=== PATIENT | male | born 1970 | race African-American/Black ===

== ENCOUNTER 2019-07-05 08:35 | Emergency (ER) | payer MEDICAID ==
[~2019-07-05] VITALS: Ht 193 cm; Wt 130.0 kg
--- NOTE | 2019-07-05 09:18 | NUR ---
informed provider kailee of pt BP currently 196/113, she asked what he takes, gf doesnt know meds, and pt hasnt been taking them, she will address
--- NOTE | 2019-07-05 09:24 | NUR ---
provider at bedside, pt is able to answer questions now
[2019-07-05 10:06] VITALS: BP 185/126
== END 2019-07-05 10:07 | disposition home or self-care (01) ==
LOC: ER 08:36
DX: G40.909 Epilepsy, unspecified, not intractable, without status epilepticus (principal)
CPT/HCPCS: 99284

== ENCOUNTER 2019-12-03 14:25 | Emergency (ER) | payer MEDICAID ==
[~2019-12-03] VITALS: Ht 193 cm; Wt 122.0 kg
[2019-12-03] MEDS ORDERED: levetiracetam-NS 1000mg/100ml 100 ML IV SCH (14:46)
[2019-12-03 15:02] LABS: BASOPHILS # (AUTO) 0.1 X10'3 (0-0.2); EOSINOPHILS # (AUTO) 0.2 X10'3 (0-0.9); EOSINOPHILS % (AUTO) 3.7 % (0-6); HEMATOCRIT 44.5 % (42.0-52.0); LYMPHOCYTES # (AUTO) 1.8 X10'3 (1.1-4.8); LYMPHOCYTES % (AUTO) 28.7 % (21-51); MEAN CORPUSCULAR HGB CONC 33.6 g/dL (33.0-36.5); MEAN CORPUSCULAR VOLUME 89.1 FL (78-98); MEAN PLATELET VOLUME 7.9 FL (7.4-10.4); MONOCYTES # (AUTO) 0.5 X10'3 (0-0.9); MONOCYTES % (AUTO) 8.4 % (2-12); NEUTROPHILS # (AUTO) 3.7 X10'3 (1.8-7.7); NEUTROPHILS % (AUTO) 58.2 % (42-75); PLATELET COUNT 310 X10'3 (140-440); RED CELL DISTRIBUTION WIDTH 14.2 % (11.5-14.5); WHITE BLOOD COUNT 6.4 X10'3 (4.5-11.0)
[2019-12-03 15:20] LABS: ALANINE AMINOTRANSFERASE 28 U/L (12-78); ALBUMIN 3.3 G/DL (3.4-5.0); ALBUMIN/GLOBULIN RATIO 0.8 (1.1-1.5); ALKALINE PHOSPHATASE 57 IU/L (46-116); ANION GAP 5 (8-16); BILIRUBIN,TOTAL 0.5 MG/DL (0.1-1.0); BLOOD UREA NITROGEN 13 MG/DL (7-18); CALCIUM 9.2 MG/DL (8.5-10.1); CHLORIDE 101 MMOL/L (99-107); CREATININE 1.08 MG/DL (0.60-1.10); GLUCOSE 126 MG/DL (70-104); SODIUM 136 MMOL/L (135-145); TOTAL CARBON DIOXIDE 30.4 MMOL/L (24-32); TOTAL PROTEIN 7.6 G/DL (6.4-8.2); eGFR 88 ML/MIN
[2019-12-03 15:22] LABS: ASPARTATE AMINO TRANSFERASE 39 U/L (10-37); POTASSIUM 5.9 MMOL/L (3.5-5.1)
[2019-12-03] MEDS ORDERED: furosemide 40mg/4ml inj IV ONE (15:55)
[2019-12-03] MEDS ORDERED: furosemide 10 MG/1 ML 10ml inj IV ONE (15:55)
[2019-12-03 16:13] VITALS: BP 158/96
[2019-12-03] MEDS ORDERED: furosemide 20MG tablet PO ONE (16:15)
== END 2019-12-03 16:22 | disposition home or self-care (01) ==
LOC: ER 14:26
DX: G40.919 Epilepsy, unspecified, intractable, without status epilepticus (principal); E87.5 Hyperkalemia; I10 Essential (primary) hypertension; Z91.14 Patient's other noncompliance with medication regimen
CPT/HCPCS: 36415; 80053; 85025; 96374; 99284; J1953

== ENCOUNTER 2020-07-13 00:49 | Inpatient (IN) | payer MEDICAID ==
[~2020-07-13] VITALS: Ht 193 cm; Wt 118.2 kg
[2020-07-13] MEDS ORDERED: nitroGLYCERIN-Tridil 50MG/D5W 250 ML IV PRN (01:05)
[2020-07-13] MEDS ORDERED: aspirin 81mg tab.chew PO ONE (01:05)
[2020-07-13 01:28] LABS: ALANINE AMINOTRANSFERASE 39 U/L (12-78); ALBUMIN 3.7 G/DL (3.4-5.0); ALBUMIN/GLOBULIN RATIO 0.9 (1.1-1.5); ALKALINE PHOSPHATASE 71 IU/L (46-116); ANION GAP 6 (8-16); ASPARTATE AMINO TRANSFERASE 22 U/L (10-37); BILIRUBIN,TOTAL 0.5 MG/DL (0.1-1.0); BLOOD UREA NITROGEN 12 MG/DL (7-18); BUN/CREATININE RATIO 10.1 (5.4-32.0); CALCIUM 9.2 MG/DL (8.5-10.1); CHLORIDE 100 MMOL/L (99-107); CREATININE 1.19 MG/DL (0.60-1.10); GLUCOSE 235 MG/DL (70-104); POTASSIUM 3.5 MMOL/L (3.5-5.1); SODIUM 139 MMOL/L (135-145); TOTAL CARBON DIOXIDE 32.6 MMOL/L (24-32); eGFR 78 ML/MIN
[2020-07-13 01:36] LABS: TROPONIN I 0.11 NG/ML (0.0-0.05)
[2020-07-13 01:38] LABS: BASOPHILS # (AUTO) 0.1 X10'3 (0-0.2); BASOPHILS % (AUTO) 0.5 % (0-1); EOSINOPHILS # (AUTO) 0.2 X10'3 (0-0.9); EOSINOPHILS % (AUTO) 1.3 % (0-6); HEMATOCRIT 44.2 % (42.0-52.0); HEMOGLOBIN 14.7 g/dl (14.0-17.9); LYMPHOCYTES # (AUTO) 1.5 X10'3 (1.1-4.8); LYMPHOCYTES % (AUTO) 13.3 % (21-51); MEAN CORPUSCULAR HEMOGLOBIN 29.2 PG (27.0-31.0); MEAN CORPUSCULAR HGB CONC 33.1 g/dL (33.0-36.5); MEAN PLATELET VOLUME 8.1 FL (7.4-10.4); MONOCYTES # (AUTO) 0.9 X10'3 (0-0.9); MONOCYTES % (AUTO) 7.4 % (2-12); NEUTROPHILS # (AUTO) 8.9 X10'3 (1.8-7.7); NEUTROPHILS % (AUTO) 77.5 % (42-75); PLATELET COUNT 324 X10'3 (140-440); RED BLOOD COUNT 5.02 X10'6 (4.70-6.10); RED CELL DISTRIBUTION WIDTH 14.1 % (11.5-14.5); WHITE BLOOD COUNT 11.5 X10'3 (4.5-11.0)
[2020-07-13] MEDS ORDERED: enoxaparin 100mg/ml syringe SUBCUT ONE ×2 (02:00→03:00)
[2020-07-13] MEDS ORDERED: METF-950 PO (02:03)
[2020-07-13] MEDS ORDERED: KEP500T PO (02:03)
[2020-07-13] MEDS ORDERED: LORazepam 2 mg/ml vial IV ONE (03:15)
[2020-07-13] MEDS ORDERED: metoprolol tartrate 1mg/ml inj IV ONE (03:20)
[2020-07-13] MEDS ORDERED: normal saline 1000ml 1,000 ML IV SCH ×2 (03:40→14:10)
[2020-07-13] MEDS ORDERED: potassium Cl 40MEQ/1/2NS 520ml 520 ML IV PRN ×2 (03:40)
[2020-07-13] MEDS ORDERED: magnesium hydroxide 30ml (MOM) UD suspension PO PRN (03:40)
[2020-07-13] MEDS ORDERED: potassium Cl 20 mEq SR tablet PO PRN ×2 (03:40)
[2020-07-13] MEDS ORDERED: ondansetron/PF 4mg/2ml inj IV PRN (03:40)
[2020-07-13] MEDS ORDERED: morphine 2 MG/ML inj. syringe IV PRN ×2 (03:40)
[2020-07-13] MEDS ORDERED: mag hydrox/Alum hydrox/simeth 30ml oral suspension PO PRN (03:40)
[2020-07-13] MEDS ORDERED: acetaminophen 325mg tablet PO PRN (03:40)
[2020-07-13] MEDS ORDERED: diphenhydrAMINE 25mg capsule PO ONE (03:45)
[2020-07-13] MEDS ORDERED: predniSONE 20 mg tablet PO ONE (03:45)
[2020-07-13] MEDS ORDERED: LORazepam 2 mg/ml vial IV PRN (03:45)
[2020-07-13 04:11] LABS: HEMOGLOBIN A1C 7.4 % (4.5-6.2)
[2020-07-13] MEDS: K and/or MAG REPLACEMENT MC SCH ×2 (08:00→20:00)
[2020-07-13] MEDS ORDERED: metoprolol tartrate 50mg tablet PO SCH (08:00)
[2020-07-13 08:30] VITALS: BP 131/94
[2020-07-13] MEDS: levetiracetam 250mg tablet PO SCH ×2 (09:09→20:07)
[2020-07-13] MEDS ORDERED: heparin 10,000 units/1 ML INJ IV ONE (09:45)
[2020-07-13] MEDS ORDERED: heparin 10,000 units/1 ML INJ IV PRN (09:45)
[2020-07-13] MEDS ORDERED: heparin 25,000 UNIT/250ml bag 250 ML IV SCH (09:45)
--- NOTE | 2020-07-13 10:14 | NUR ---
updated DR. RAMOS THAT PATIENT WAS HAVING RUNS OF V TACH. DR RAMOS GAVE A VERBAL ORDER TO STOP THE NITRO DRIP. NITRO DRIP HAS BEEN STOPPED ORDER IS IN.
--- NOTE | 2020-07-13 11:05 | NUR ---
PAGER ID: [phone] MESSAGE: [id number] MAYITO CORDOBA TROP LEVEL WENT UP TO 20.12 ROSCOE SHAKEEL [id number]
[2020-07-13 11:24] LABS: CHOL/HDL RATIO 6.2 (0.00-4.99); CHOLESTEROL 235 MG/DL (0-200); HDL CHOLESTEROL 38 MG/DL (35-60); LDL CHOLESTEROL 142 MG/DL (50-100); TRIGLYCERIDES 231 MG/DL (20-135)
[2020-07-13] MEDS: tirofiban 5mg in NS 100mL 100 ML IV SCH ×3 (11:31→21:14)
[2020-07-13] MEDS ORDERED: nitroGLYCERIN-Tridil 50MG/D5W 250 ML IV ONE (11:59)
[2020-07-13] MEDS ORDERED: verapamil 2.5 mg/ml inj IV ONE (11:59)
[2020-07-13] MEDS ORDERED: iohexol 350MG/ML 100ml bottle IV ONE (12:00)
[2020-07-13] MEDS ORDERED: midazolam 1 mg/ML 2ml injection ONE (12:00)
[2020-07-13] MEDS ORDERED: LIDOcaine 1% (10mg/ml)w/preservative injection 20ml MDV ONE (12:00)
[2020-07-13] MEDS ORDERED: heparin 1,000unit/ml 10ml vial 10 ML ONE (12:00)
[2020-07-13] MEDS ORDERED: fentaNYL/PF 50MCG/1 ML 2ML syringe ONE (12:00)
[2020-07-13 12:41] LABS: PARTIAL THROMBOPLASTIN TIME 26 SECONDS (22-32)
[2020-07-13 13:03] VITALS: BP 130/90
[2020-07-13] MEDS ORDERED: ticagrelor 90mg tablet ONE (13:18)
[2020-07-13] MEDS ORDERED: nitroGLYCERIN 0.4mg SUBLingual tab SL PRN (14:15)
--- NOTE | 2020-07-13 14:35 | NUR ---
ALL HYDRAULIC MECHANIC ORDERS FAXED TO PHARMACY, AWAIT THERE ARRIVAL ON eMAR Addendum: 07/14/20 at 1401 by Mariia Joseph RN Amended: Links added.
--- NOTE | 2020-07-13 16:20 | NUR ---
SPOKE WITH SHANTI WING AND ASKED IF I COULD PUT AN ORDER IN FOR PATIENT TO RECEIVE FIRST DOSE OF METOPROL AND LOSARTAN. ORDERS ENTERED AND GIVEN. Addendum: 07/14/20 at 1407 by Mariia Joseph RN Amended: Links added.
[2020-07-13 16:21] VITALS: BP 131/85
[2020-07-13] MEDS ORDERED: metoprolol succinate 25mg (24-HOUR) SR. Tablet PO ONE (16:45)
[2020-07-13] MEDS: losartan 25mg tablet PO SCH (17:00)
[2020-07-13 18:00] VITALS: BP 139/92
--- NOTE | 2020-07-13 18:10 | NUR ---
Patient in room PCU 3023. I have received report from KAYLI MALHOTRA and had the opportunity to ask questions and assume patient care.
[2020-07-13] MEDS ORDERED: enoxaparin 100mg/ml syringe SUBCUT SCH (20:00)
[2020-07-13] MEDS: atorvastatin 20mg tablet PO SCH (20:07)
[2020-07-13 22:00] VITALS: BP 141/93
[2020-07-14] VITALS (16 sets, daily range): BP systolic 115–149; BP diastolic 73–103
[2020-07-14] MEDS: tirofiban 5mg in NS 100mL 100 ML IV SCH (01:51)
--- NOTE | 2020-07-14 06:00 | NUR ---
Problems reprioritized. Patient report given, questions answered & plan of care reviewed with KAYLI MALHOTRA.
--- NOTE | 2020-07-14 06:00 | NUR ---
Patient in room PCU 3023. I have received report from IMANI MILAN and had the opportunity to ask questions and assume patient care.
--- NOTE | 2020-07-14 06:08 | NUR ---
Problems reprioritized. Patient report given, questions answered & plan of care reviewed with KAYLI DANIELLE.
[2020-07-14] MEDS: K and/or MAG REPLACEMENT MC SCH ×3 (08:00→21:33)
[2020-07-14 08:17] LABS: BASOPHILS % (AUTO) 0.3 % (0-1); EOSINOPHILS # (AUTO) 0.1 X10'3 (0-0.9); EOSINOPHILS % (AUTO) 0.9 % (0-6); HEMOGLOBIN 14.6 g/dl (14.0-17.9); LYMPHOCYTES # (AUTO) 1.6 X10'3 (1.1-4.8); LYMPHOCYTES % (AUTO) 14.2 % (21-51); MEAN CORPUSCULAR HEMOGLOBIN 29.5 PG (27.0-31.0); MEAN CORPUSCULAR HGB CONC 33.1 g/dL (33.0-36.5); MEAN PLATELET VOLUME 8.3 FL (7.4-10.4); MONOCYTES # (AUTO) 1.3 X10'3 (0-0.9); MONOCYTES % (AUTO) 11.2 % (2-12); NEUTROPHILS # (AUTO) 8.5 X10'3 (1.8-7.7); NEUTROPHILS % (AUTO) 73.4 % (42-75); PLATELET COUNT 308 X10'3 (140-440); RED BLOOD COUNT 4.94 X10'6 (4.70-6.10); RED CELL DISTRIBUTION WIDTH 13.9 % (11.5-14.5); WHITE BLOOD COUNT 11.6 X10'3 (4.5-11.0)
[2020-07-14] MEDS: nicotine 14mg patch - 24hr TD SCH (08:37)
[2020-07-14] MEDS: metoprolol succinate 25mg (24-HOUR) SR. Tablet PO SCH (08:38)
[2020-07-14] MEDS: losartan 25mg tablet PO SCH (08:38)
[2020-07-14] MEDS: levetiracetam 250mg tablet PO SCH ×2 (08:38→19:50)
[2020-07-14 08:45] LABS: ALANINE AMINOTRANSFERASE 89 U/L (12-78); ALBUMIN 3.1 G/DL (3.4-5.0); ALBUMIN/GLOBULIN RATIO 0.7 (1.1-1.5); ALKALINE PHOSPHATASE 68 IU/L (46-116); ANION GAP 9 (8-16); ASPARTATE AMINO TRANSFERASE 410 U/L (10-37); BLOOD UREA NITROGEN 10 MG/DL (7-18); BUN/CREATININE RATIO 9.3 (5.4-32.0); CALCIUM 8.7 MG/DL (8.5-10.1); CHLORIDE 99 MMOL/L (99-107); CHOL/HDL RATIO 5.6 (0.00-4.99); CHOLESTEROL 206 MG/DL (0-200); CREATININE 1.07 MG/DL (0.60-1.10); GLUCOSE 145 MG/DL (70-104); HDL CHOLESTEROL 37 MG/DL (35-60); LDL CHOLESTEROL 133 MG/DL (50-100); POTASSIUM 3.6 MMOL/L (3.5-5.1); SODIUM 137 MMOL/L (135-145); TOTAL CARBON DIOXIDE 29.4 MMOL/L (24-32); TOTAL PROTEIN 7.5 G/DL (6.4-8.2); TRIGLYCERIDES 175 MG/DL (20-135); eGFR 88 ML/MIN
--- NOTE | 2020-07-14 09:45 | NUR ---
CALLED PHARMACY TO HAVE ASPIRIN AND BRILINTA ADDED TO MORNING MEDS Addendum: 07/14/20 at 1353 by Mariia Joseph RN Amended: Links added.
--- NOTE | 2020-07-14 11:45 | NUR ---
CALLED PHARMACY ABOUT BRILINTA AND BABY ASPIRIN AGAIN, PHARMACIST STATED THAT HE WAS LOOKING OVER THE ORDERS AND WOULD GET IT IN Addendum: 07/14/20 at 1356 by Mariia Joseph RN Amended: Links added.
--- NOTE | 2020-07-14 11:58 | NUR ---
PAGER ID: [phone] MESSAGE: [phone] MAYITO CORDOBA EKG SHOWING SC, PT IS ASLEEP NOW BUT WAS COMPLAINING OF LEFT SHOULDER PAIN
--- NOTE | 2020-07-14 12:09 | NUR ---
PAGER ID: [phone] MESSAGE: [id number] BERYL EDMOND PT IS NOW COMPLAINING THAT HE FEELS FUNNY, HE IS ALSO diaphoretic IM WORRIED HIS STENT IS CLOTTING OFF ROSCOE [id number]
[2020-07-14] MEDS ORDERED: midazolam 1 mg/ML 2ml injection ONE (12:39)
[2020-07-14] MEDS ORDERED: iohexol 350 MG/1 ML 200ml bottle ONE (12:40)
[2020-07-14] MEDS ORDERED: LIDOcaine 1% (10mg/ml)w/preservative injection 20ml MDV ONE (12:40)
[2020-07-14] MEDS ORDERED: fentaNYL/PF 50MCG/1 ML 2ML syringe ONE (12:40)
[2020-07-14] MEDS: aspirin 81mg tablet.DR PO SCH (12:40)
[2020-07-14] MEDS: ticagrelor 90mg tablet PO SCH ×2 (12:40→19:50)
[2020-07-14] MEDS ORDERED: heparin 1,000unit/ml 10ml vial 10 ML ONE (12:40)
--- NOTE | 2020-07-14 12:40 | NUR ---
CALLED PHARMACY AGAIN AND THIS TIME THE BRILINTA AND ASPIRIN WHERE ADDED AND I WAS ABLE TO GIVE TO PT Addendum: 07/14/20 at 1357 by Mariia Joseph RN Amended: Links added.
[2020-07-14] MEDS ORDERED: ticagrelor 90mg tablet ONE (13:05)
--- NOTE | 2020-07-14 13:42 | NUR ---
Pt with A1c 7.4%, admit for NSTEMI. Noted elevated lipid panel. Attempted visit with pt at bedside however pt sleeping. SO at bedside reports she does most of the cooking at home. Pt briefly woke and gave consent for RD to d/w SO. Written and verbal DM and heart healthy nutrition therapy educations provided. RD discussed foods that contain carbohydrates, reading the nutrition facts label, fat and CHO intake in moderation, different types and sources of fat, and the role of exercise. SO reports pt with "prediabetes". Noted Metformin reported on home med list per H&P though SO denies that pt has been taking any DM medication or checking blood sugars. RD encouraged pt to f/u with MD regarding further plan for BG control in view of current A1c. SO verbalized understanding and reports pt has an appointment with his physician coming up. All questions were answered at this time. SO states she will review education with pt. RD contact information provided. Will remain available. Addendum: 07/14/20 at [address] Amended: Links added.
--- NOTE | 2020-07-14 14:34 | NUR ---
DR CHRISTIAN SHOWN IMAGE OF EKG TAKEN UPON ARRIVAL BACK TO U. HE STATES THAT IT LOOKS THE SAME THE ONE PRIOR TO ADVENTURE GUIDE. NO ISSUE WITH LAD WAS FINE.
[2020-07-14] MEDS: atorvastatin 20mg tablet PO SCH (19:50)
--- NOTE | 2020-07-14 22:42 | NUR ---
Patient in room PCU 3023. I have received report from Mariia MILAN and had the opportunity to ask questions and assume patient care.
[2020-07-15 02:00] VITALS: BP 152/94
[2020-07-15 06:00] VITALS: BP 126/85
--- NOTE | 2020-07-15 06:00 | NUR ---
Patient in room PCU 3023. I have received report from Rell MILAN and had the opportunity to ask questions and assume patient care.
--- NOTE | 2020-07-15 06:32 | NUR ---
Problems reprioritized. Patient report given, questions answered & plan of care reviewed with Maggie.
[2020-07-15 07:18] LABS: BASOPHILS % (AUTO) 0.4 % (0-1); EOSINOPHILS % (AUTO) 0.4 % (0-6); HEMATOCRIT 44.6 % (42.0-52.0); HEMOGLOBIN 15.1 g/dl (14.0-17.9); LYMPHOCYTES # (AUTO) 1.5 X10'3 (1.1-4.8); LYMPHOCYTES % (AUTO) 14.5 % (21-51); MEAN CORPUSCULAR HEMOGLOBIN 29.8 PG (27.0-31.0); MEAN CORPUSCULAR HGB CONC 33.8 g/dL (33.0-36.5); MEAN CORPUSCULAR VOLUME 88.2 FL (78-98); MEAN PLATELET VOLUME 8.1 FL (7.4-10.4); MONOCYTES # (AUTO) 1.5 X10'3 (0-0.9); NEUTROPHILS % (AUTO) 69.7 % (42-75); PLATELET COUNT 290 X10'3 (140-440); RED BLOOD COUNT 5.06 X10'6 (4.70-6.10); RED CELL DISTRIBUTION WIDTH 14.2 % (11.5-14.5)
[2020-07-15 07:44] LABS: ALANINE AMINOTRANSFERASE 72 U/L (12-78); ALBUMIN 2.8 G/DL (3.4-5.0); ALBUMIN/GLOBULIN RATIO 0.6 (1.1-1.5); ALKALINE PHOSPHATASE 67 IU/L (46-116); ANION GAP 11 (8-16); ASPARTATE AMINO TRANSFERASE 156 U/L (10-37); BILIRUBIN,TOTAL 2.3 MG/DL (0.1-1.0); BLOOD UREA NITROGEN 9 MG/DL (7-18); CHLORIDE 100 MMOL/L (99-107); GLUCOSE 137 MG/DL (70-104); POTASSIUM 3.6 MMOL/L (3.5-5.1); SODIUM 138 MMOL/L (135-145); TOTAL CARBON DIOXIDE 27.3 MMOL/L (24-32); TOTAL PROTEIN 7.6 G/DL (6.4-8.2); eGFR > 90 ML/MIN
[2020-07-15] MEDS: levetiracetam 250mg tablet PO SCH (07:54)
[2020-07-15] MEDS: ticagrelor 90mg tablet PO SCH (07:55)
[2020-07-15] MEDS: aspirin 81mg tablet.DR PO SCH (07:55)
[2020-07-15] MEDS: metoprolol succinate 25mg (24-HOUR) SR. Tablet PO SCH (07:55)
[2020-07-15 07:59] LABS: PLATELET ESTIMATE NORMAL; TOTAL CELLS COUNTED 100
[2020-07-15] MEDS ORDERED: losartan 25mg tablet PO SCH (08:00)
[2020-07-15] MEDS: K and/or MAG REPLACEMENT MC SCH (08:00)
[2020-07-15] MEDS: nicotine 14mg patch - 24hr TD SCH (08:02)
[2020-07-15 11:00] VITALS: BP 117/81
[2020-07-15 15:00] VITALS: BP 111/68
--- NOTE | 2020-07-15 17:03 | NUR ---
PAGER ID: [phone] MESSAGE: Patient Luis Graves room [id number] has received his life vest and is inquiring about discharge. Please advise,. Thanks, Maggie [phone]
--- NOTE | 2020-07-15 17:10 | NUR ---
PAGER ID: [phone] MESSAGE: Dr. Simpson has rounded on pt Luis Graves Rm 1706N and stated from his perspective he is ok for discharge with home meds ASA, Brilinta and statin. Maggie ext [phone]
[2020-07-15] MEDS ORDERED: ATOR20TA66 PO (17:19)
[2020-07-15] MEDS ORDERED: TICA90TA PO (17:19)
[2020-07-15] MEDS ORDERED: NICO-631 TD (17:19)
[2020-07-15] MEDS ORDERED: LOSA25TA41 PO (17:19)
[2020-07-15] MEDS ORDERED: ASPI-1071 PO (17:19)
[2020-07-15] MEDS ORDERED: METO-395 PO (17:19)
--- NOTE | 2020-07-15 17:47 | NUR ---
patient stable for discharge per Dr Simpson and Dr Aponte. Education provided on lifevest, medication regimine, and follow up appointments. Tele and PIV discharged with cannula intact. Pt wheeled to lobby by [facility] to be transported home with his spouse.
== END 2020-07-15 17:43 | disposition home or self-care (01) | DRG 174 ==
LOC: ER 00:50 → ED HOLD 03:40 → PCU 3S 08:12
PROVIDERS: ADMIT Internal Medicine; ATTEND Internal Medicine
PROC: 027034Z Dilation of Coronary Artery, One Artery with Drug-eluting Intraluminal Device, Percutaneous Approach (ICD-10-PCS; principal; 2020-07-13)
PROC: 4A023N7 Measurement of Cardiac Sampling and Pressure, Left Heart, Percutaneous Approach (ICD-10-PCS; 2020-07-13)
PROC: B2111ZZ Fluoroscopy of Multiple Coronary Arteries using Low Osmolar Contrast (ICD-10-PCS; 2020-07-13)
PROC: B2111ZZ Fluoroscopy of Multiple Coronary Arteries using Low Osmolar Contrast (ICD-10-PCS; 2020-07-14)
PROC: B41F1ZZ Fluoroscopy of Right Lower Extremity Arteries using Low Osmolar Contrast (ICD-10-PCS; 2020-07-14)
DX: I21.4 Non-ST elevation (NSTEMI) myocardial infarction (principal); I11.0 Hypertensive heart disease with heart failure; I50.22 Chronic systolic (congestive) heart failure; E11.9 Type 2 diabetes mellitus without complications; G40.909 Epilepsy, unspecified, not intractable, without status epilepticus; E78.5 Hyperlipidemia, unspecified; Z88.8 Allergy status to other drugs, medicaments and biological substances; F17.210 Nicotine dependence, cigarettes, uncomplicated; F12.90 Cannabis use, unspecified, uncomplicated; Z91.14 Patient's other noncompliance with medication regimen; E78.00 Pure hypercholesterolemia, unspecified; I16.0 Hypertensive urgency; I25.10 Atherosclerotic heart disease of native coronary artery without angina pectoris; Z79.899 Other long term (current) drug therapy; M54.2 Cervicalgia; Z79.02 Long term (current) use of antithrombotics/antiplatelets
CPT/HCPCS: 36415; 71045; 80053; 80061; 82948; 83036; 83880; 84484; 85007; 85025; 85610; 85730; 93005; 93306; 93454; 96365; 96372; 96375; 99152; 99291; A4620; A5120; A6258; C1725; C1751; C1760; C1769; C1874; C1894; C9600; C9606; G0378; J1644; J1650; J2001; J2060; J2250; J3010; J3246; J3490; J7030; J7512; Q0163; Q9967

== ENCOUNTER 2020-07-24 18:04 | Emergency (ER) | payer MEDICAID ==
[~2020-07-24] VITALS: Ht 193 cm; Wt 115.9 kg
[~2020-07-24 18:04] MED LIST: ASPI-1071 PO; ATOR20TA66 PO; KEP500T PO; LOSA25TA41 PO; METF-950 PO; METO-395 PO; NICO-631 TD; TICA90TA PO
[2020-07-24 19:17] VITALS: BP 121/81
== END 2020-07-24 21:33 | disposition left against medical advice (07) ==
LOC: ER 18:05
DX: M79.631 Pain in right forearm (principal); M25.531 Pain in right wrist; E78.00 Pure hypercholesterolemia, unspecified; I10 Essential (primary) hypertension; Z91.013 Allergy to seafood; Z79.82 Long term (current) use of aspirin; Z79.899 Other long term (current) drug therapy
CPT/HCPCS: 99281

== ENCOUNTER 2020-11-21 03:17 | Inpatient (IN) | payer MEDICAID ==
[~2020-11-21] VITALS: Ht 193 cm; Wt 121.4 kg
[2020-11-21] MEDS ORDERED: ondansetron/PF 4mg/2ml inj IV ONE (04:00)
[2020-11-21] MEDS ORDERED: normal saline 1000ML IV soln IVB ONE (04:00)
[2020-11-21 04:12] LABS: BASOPHILS # (AUTO) 0.1 X10'3 (0-0.2); BASOPHILS % (AUTO) 0.5 % (0-1); EOSINOPHILS % (AUTO) 0 % (0-6); LYMPHOCYTES # (AUTO) 0.5 X10'3 (1.1-4.8); LYMPHOCYTES % (AUTO) 4.5 % (21-51); MEAN PLATELET VOLUME 10.4 FL (7.4-10.4); MONOCYTES # (AUTO) 0.9 X10'3 (0-0.9); NEUTROPHILS # (AUTO) 10.8 X10'3 (1.8-7.7); PLATELET COUNT 326 X10'3 (140-440); WHITE BLOOD COUNT 12.3 X10'3 (4.5-11.0)
[2020-11-21 04:26] LABS: ALANINE AMINOTRANSFERASE 50 U/L (12-78); ALBUMIN 3.9 G/DL (3.4-5.0); ALBUMIN/GLOBULIN RATIO 0.8 (1.1-1.5); ALKALINE PHOSPHATASE 116 IU/L (46-116); ANION GAP 29 (8-16); ASPARTATE AMINO TRANSFERASE 18 U/L (10-37); BILIRUBIN,TOTAL 0.7 MG/DL (0.1-1.0); BLOOD UREA NITROGEN 46 MG/DL (7-18); BUN/CREATININE RATIO 14.9 (5.4-32.0); CALCIUM 10.2 MG/DL (8.5-10.1); CHLORIDE 84 MMOL/L (99-107); CREATININE 3.08 MG/DL (0.60-1.10); LIPASE 206 U/L (73-393); MAGNESIUM 3.2 MG/DL (1.5-2.4); SODIUM 125 MMOL/L (135-145); TOTAL PROTEIN 8.7 G/DL (6.4-8.2); TROPONIN I < 0.04 NG/ML (0.0-0.05); eGFR 26 ML/MIN
[2020-11-21 04:44] LABS: HEMATOCRIT 42.6 % (42.0-52.0); HEMOGLOBIN 15.1 g/dl (14.0-17.9); MEAN CORPUSCULAR HEMOGLOBIN 29.5 PG (27.0-31.0); MEAN CORPUSCULAR HGB CONC 35.5 g/dL (33.0-36.5); RED BLOOD COUNT 5.14 X10'6 (4.70-6.10); RED CELL DISTRIBUTION WIDTH 13.3 % (11.5-14.5)
[2020-11-21 05:02] LABS: GLUCOSE 1267 MG/DL (70-104); POTASSIUM 6.5 MMOL/L (3.5-5.1); TOTAL CARBON DIOXIDE 12.2 MMOL/L (24-32)
[2020-11-21 05:03] LABS: ETHANOL < 0.010 GM/DL (0.0-0.010)
[2020-11-21] MEDS ORDERED: sodium phosphate inj. 15 MMOL in dextrose 5%-water 250 ML IV PRN ×2 (05:10→08:10)
[2020-11-21] MEDS ORDERED: calcium chloride 100 MG/1 ML inj IV ONE (05:10)
[2020-11-21] MEDS ORDERED: potassium CL 20mEq in D5-1/2NS 1,000 ML IV PRN ×2 (05:10→08:10)
[2020-11-21] MEDS ORDERED: sodium bicarbonate (8.4%) inj. 100 MEQ in dextrose 5% water 500ml 500 ML IV PRN ×2 (05:10→08:10)
[2020-11-21] MEDS ORDERED: sodium phosphate inj. 30 MMOL in dextrose 5%-water 250 ML IV PRN ×2 (05:10→08:10)
[2020-11-21] MEDS ORDERED: Neutra Phos packet PO PRN ×2 (05:10→08:10)
[2020-11-21] MEDS ORDERED: potassium Cl 20 mEq SR tablet PO PRN ×4 (05:10→08:10)
[2020-11-21] MEDS ORDERED: potassium Cl 40MEQ/1/2NS 520ml 520 ML IV PRN ×4 (05:10→08:10)
[2020-11-21] MEDS ORDERED: sodium bicarbonate (8.4%) inj. 50 MEQ in dextrose 5% water 500ml 250 ML IV PRN ×2 (05:10→08:10)
[2020-11-21] MEDS ORDERED: insulin regular, human 10 units/0.1 ml syringe IV ONE (05:10)
[2020-11-21] MEDS: normal saline 1000ml 1,000 ML IV SCH ×8 (05:22→22:39)
[2020-11-21 05:44] LABS: CLARITY,URINE CLEAR (Clear); COLOR,URINE STRAW (Yellow); GLUCOSE, URINE >=1000 mg/dl (Neg); KETONES,URINE 80 mg/dl (Neg); LEUKOCYTE ESTERASE ,URINE NEGATIVE (Neg); NITRITES, URINE NEGATIVE (Neg); OCCULT BLOOD,URINE NEGATIVE (Neg); PROTEIN,URINE NEGATIVE (Neg); UA COLLECTION TYPE URINAL; UROBILINOGEN,URINE 0.2 E.U/dL (0.2-1.0)
[2020-11-21 05:50] LABS: BACTERIA,URINE NONE SEEN /HPF (Neg); MUCUS STRANDS NONE SEEN /LPF (Neg); RBC,URINE NONE SEEN /HPF (0-2); WBC,URINE 0-4 /HPF (0-4)
[2020-11-21 05:51] LABS: SQUAMOUS EPITHELIAL CELL,UR NONE SEEN /LPF (FEW)
[2020-11-21] MEDS: Insulin Reg/NS 100units/100mL 100 ML IV SCH ×2 (06:20→14:38)
[2020-11-21 07:03] LABS: ABG BASE EXCESS -15.2 mmol/L (-2.0-2.0); ABG HCO3 10.6 mmol/L (22.0-26.0); ABG OXYGEN SATURATION 96.4 % (94-97); ABG PCO2 (T) 25.2 mmHg (35.0-48.0); ABG PO2 (T) 89.7 mmHg (75.0-100.0); ALLEN'S TEST POSITIVE; FCOHb 0.3 % (0.0-3.9); FLOW 0 L/min; FMetHb 0.1 % (0.0-1.5); PATIENT TEMPERATURE 36.2; TOTAL HEMOGLOBIN 15.5 G/dl (14.0-18.0)
[2020-11-21] MEDS ORDERED: K and/or MAG REPLACEMENT MC SCH ×2 (08:00→20:00)
[2020-11-21] MEDS ORDERED: insulin regular, human U-100 3ml vial - multi-dose IV PRN (08:10)
[2020-11-21] MEDS ORDERED: mag hydrox/Alum hydrox/simeth 30ml oral suspension PO PRN (08:10)
[2020-11-21] MEDS ORDERED: morphine 2 MG/ML inj. syringe IV PRN ×2 (08:10)
[2020-11-21] MEDS ORDERED: magnesium hydroxide 30ml (MOM) UD suspension PO PRN (08:10)
[2020-11-21] MEDS ORDERED: HYDROcodone/acetaminophen 5mg/325mg tablet PO PRN (08:10)
[2020-11-21] MEDS ORDERED: HYDROcodone/acetaminophen 10/325mg tab PO PRN (08:10)
[2020-11-21] MEDS ORDERED: normal saline 1000ml 1,000 ML IV SCH (08:10)
[2020-11-21] MEDS ORDERED: acetaminophen 325mg tablet PO PRN ×2 (08:10)
[2020-11-21] MEDS ORDERED: ondansetron/PF 4mg/2ml inj IV PRN (08:10)
[2020-11-21] MEDS ORDERED: Insulin Reg/NS 100units/100mL 100 ML IV SCH (08:10)
[2020-11-21] MEDS ORDERED: SPIR25TA5 PO (09:18)
[2020-11-21] MEDS ORDERED: ASPI-1397 PO (09:18)
[2020-11-21] MEDS ORDERED: ATOR-2 PO (09:18)
[2020-11-21] MEDS ORDERED: LEVE250T PO (09:18)
[2020-11-21] MEDS ORDERED: LOSA100T57 PO (09:18)
[2020-11-21] MEDS ORDERED: BISO10TA16 PO (09:18)
[2020-11-21] MEDS ORDERED: TICA90TA2 PO (09:18)
[2020-11-21] MEDS ORDERED: METF-436 PO (09:18)
[2020-11-21] MEDS ORDERED: NICO-731 TOP (09:20)
[2020-11-21 09:38] LABS: ALBUMIN 3.7 G/DL (3.4-5.0); ANION GAP 30 (8-16); BLOOD UREA NITROGEN 43 MG/DL (7-18); BUN/CREATININE RATIO 18.7 (5.4-32.0); CALCIUM 10.1 MG/DL (8.5-10.1); CHLORIDE 100 MMOL/L (99-107); PHOSPHORUS 3.6 MG/DL (2.3-4.5); SODIUM 142 MMOL/L (135-145); TROPONIN I < 0.04 NG/ML (0.0-0.05); eGFR 36 ML/MIN
[2020-11-21 10:08] LABS: GLUCOSE 750 MG/DL (70-104); TOTAL CARBON DIOXIDE 12.5 MMOL/L (24-32)
--- NOTE | 2020-11-21 12:25 | NUR ---
relieving RN for break, pt is sleeping quietly on gurney, resp even and unlabored, family at bedside
--- NOTE | 2020-11-21 15:49 | NUR ---
RELIEVING RN FOR BREAK, PT IS RESTING QUIETLY ON [facility] FAMILY AT BEDSIDE, BLOOD SUGAR 198
[2020-11-21 16:55] LABS: ANION GAP 11 (8-16); BLOOD UREA NITROGEN 31 MG/DL (7-18); BUN/CREATININE RATIO 17.4 (5.4-32.0); CHLORIDE 116 MMOL/L (99-107); CREATININE 1.78 MG/DL (0.60-1.10); GLUCOSE 188 MG/DL (70-104); POTASSIUM 4.5 MMOL/L (3.5-5.1); SODIUM 152 MMOL/L (135-145); TOTAL CARBON DIOXIDE 25.1 MMOL/L (24-32)
[2020-11-21 16:56] LABS: ALBUMIN 3.4 G/DL (3.4-5.0); CALCIUM 9.7 MG/DL (8.5-10.1); eGFR 49 ML/MIN
[2020-11-21 18:00] VITALS: BP 152/92
[2020-11-21] MEDS ORDERED: dextrose 50%-water 50ml dispensing syringe IV PRN ×2 (18:00)
[2020-11-21] MEDS ORDERED: dextrose ORAL solution 15 GM/59 ML bottle PO PRN ×2 (18:00)
[2020-11-21] MEDS ORDERED: glucagon, human recombinant 1mg kit SUBCUT PRN (18:00)
[2020-11-21] MEDS ORDERED: insulin glargine (Lantus) pen - multi-dose SQ ONE (19:00)
--- NOTE | 2020-11-21 19:51 | NUR ---
Dr. Ortiz notified of 1999 POC glucose of 230. Considering most recent labs he instructs to keep the current fluids (D5 1/2NS +20KCL) but change the rate from 150ml/hr to 50ml/hr and keep checking the patients glucose Q2hrs.
[2020-11-21 22:00] VITALS: BP 145/86
--- NOTE | 2020-11-21 22:08 | NUR ---
Dr. Ortiz notified of 2200 glucose of 260. RN questioned the continuation of the dextrose solution without the insulin gtt. Dr. Ortiz changed IV solution to NS@50 and instructs to change Accucheks to ACHS instead of Q2hr and switch completely to the normal SQ hyperglycemic protocol which calls for 1 unit of Humalog for this POC glucose and he also has 10 units of lantus to give. the patient's dinner tray never came because it was ordered late via fax from day shift. RN will give him a small snack from the unit kitchen.
[2020-11-21] MEDS: atorvastatin 20mg tablet PO SCH (22:38)
[2020-11-21] MEDS: ticagrelor 90mg tablet PO SCH (22:38)
[2020-11-21] MEDS: docusate sod 100mg capsule PO SCH (22:38)
[2020-11-21] MEDS: levetiracetam 250mg tablet PO SCH (22:39)
[2020-11-21] MEDS: insulin Lispro (HumaLOG) vial - multi-dose SQ SCH (22:43)
[2020-11-22] VITALS (8 sets, daily range): BP systolic 90–148; BP diastolic 48–88
--- NOTE | 2020-11-22 00:06 | NUR ---
POC glucose was checked at 0000 by resource nurse who was not notified that pt had been switched to ACHS and it read 309. Dr. Ortiz was notified about the continued increase in blood sugar. He instructed to give 6 units of humalog as a 1x dose.
[2020-11-22] MEDS: insulin Lispro (HumaLOG) vial - multi-dose SQ SCH ×5 (00:18→22:39)
[2020-11-22] MEDS ORDERED: insulin glargine (Lantus) pen - multi-dose SQ ONE (07:05)
[2020-11-22 07:43] LABS: BASOPHILS % (AUTO) 0.3 % (0-1); EOSINOPHILS # (AUTO) 0.1 X10'3 (0-0.9); EOSINOPHILS % (AUTO) 1.2 % (0-6); HEMATOCRIT 40.8 % (42.0-52.0); HEMOGLOBIN 13.7 g/dl (14.0-17.9); LYMPHOCYTES # (AUTO) 1.5 X10'3 (1.1-4.8); MEAN CORPUSCULAR HEMOGLOBIN 28.9 PG (27.0-31.0); MEAN CORPUSCULAR HGB CONC 33.6 g/dL (33.0-36.5); MEAN PLATELET VOLUME 9.3 FL (7.4-10.4); MONOCYTES # (AUTO) 1.2 X10'3 (0-0.9); MONOCYTES % (AUTO) 13.2 % (2-12); NEUTROPHILS # (AUTO) 6.1 X10'3 (1.8-7.7); NEUTROPHILS % (AUTO) 68.3 % (42-75); PLATELET COUNT 245 X10'3 (140-440); RED BLOOD COUNT 4.74 X10'6 (4.70-6.10); RED CELL DISTRIBUTION WIDTH 14.5 % (11.5-14.5); WHITE BLOOD COUNT 8.9 X10'3 (4.5-11.0)
[2020-11-22] MEDS: levetiracetam 250mg tablet PO SCH ×2 (08:44→20:31)
[2020-11-22] MEDS: docusate sod 100mg capsule PO SCH ×2 (08:44→20:31)
[2020-11-22] MEDS: atenolol 50mg tablet PO SCH (08:44)
[2020-11-22] MEDS: losartan 50mg tablet PO SCH (08:45)
[2020-11-22] MEDS: ticagrelor 90mg tablet PO SCH ×2 (08:45→20:31)
[2020-11-22 11:09] LABS: ALANINE AMINOTRANSFERASE 42 U/L (12-78); ALBUMIN 2.8 G/DL (3.4-5.0); ALBUMIN/GLOBULIN RATIO 0.7 (1.1-1.5); ALKALINE PHOSPHATASE 71 IU/L (46-116); ANION GAP 15 (8-16); ASPARTATE AMINO TRANSFERASE 30 U/L (10-37); BILIRUBIN,TOTAL 0.7 MG/DL (0.1-1.0); BLOOD UREA NITROGEN 20 MG/DL (7-18); BUN/CREATININE RATIO 13.2 (5.4-32.0); CALCIUM 8.7 MG/DL (8.5-10.1); CHLORIDE 105 MMOL/L (99-107); CREATININE 1.51 MG/DL (0.60-1.10); GLUCOSE 408 MG/DL (70-104); POTASSIUM 4.6 MMOL/L (3.5-5.1); SODIUM 140 MMOL/L (135-145); TOTAL CARBON DIOXIDE 20.3 MMOL/L (24-32); TOTAL PROTEIN 6.9 G/DL (6.4-8.2); eGFR 59 ML/MIN
--- NOTE | 2020-11-22 13:54 | NUR ---
Initial: Pt admitted w/ nausea, vomiting and abd pain, found to have DKA per EMR. BG upon admission 1267mg/dL and A1c 13.6 pt states that he takes metformin at home. Pt currently on CCHO diet w/ 0% of first meal though up to 75-100% now. Provided Pt and family member w/ written and verbal DM education w/ RD contact info. Pt receptive of information. Will provide double protein w/ meals to help meet energy needs. Will continue to monitor. Recs: 1. Continue CCHO diet as tolerated 2. Double protein TID w/ meals 3. Bowel care per rx 4. Scaled wt this admit, weekly wts thereafter Addendum: 11/22/20 at [address] Amended: Links added.
[2020-11-22] MEDS: normal saline 1000ml 1,000 ML IV SCH (15:55)
[2020-11-22] MEDS: atorvastatin 20mg tablet PO SCH (20:32)
[2020-11-23 02:00] VITALS: BP 95/50
[2020-11-23 07:32] LABS: BASOPHILS % (AUTO) 0.4 % (0-1); EOSINOPHILS # (AUTO) 0.1 X10'3 (0-0.9); EOSINOPHILS % (AUTO) 1.5 % (0-6); HEMATOCRIT 39.7 % (42.0-52.0); HEMOGLOBIN 13.1 g/dl (14.0-17.9); LYMPHOCYTES # (AUTO) 1.6 X10'3 (1.1-4.8); LYMPHOCYTES % (AUTO) 24.7 % (21-51); MEAN CORPUSCULAR HEMOGLOBIN 28.8 PG (27.0-31.0); MEAN CORPUSCULAR VOLUME 87.2 FL (78-98); MEAN PLATELET VOLUME 9.3 FL (7.4-10.4); MONOCYTES # (AUTO) 0.6 X10'3 (0-0.9); MONOCYTES % (AUTO) 10.1 % (2-12); NEUTROPHILS # (AUTO) 4.1 X10'3 (1.8-7.7); NEUTROPHILS % (AUTO) 63.3 % (42-75); PLATELET COUNT 193 X10'3 (140-440); RED BLOOD COUNT 4.55 X10'6 (4.70-6.10); RED CELL DISTRIBUTION WIDTH 13.9 % (11.5-14.5); WHITE BLOOD COUNT 6.4 X10'3 (4.5-11.0)
[2020-11-23 07:49] LABS: ALANINE AMINOTRANSFERASE 43 U/L (12-78); ALBUMIN 2.5 G/DL (3.4-5.0); ALBUMIN/GLOBULIN RATIO 0.6 (1.1-1.5); ALKALINE PHOSPHATASE 75 IU/L (46-116); ANION GAP 15 (8-16); ASPARTATE AMINO TRANSFERASE 31 U/L (10-37); BILIRUBIN,TOTAL 0.8 MG/DL (0.1-1.0); BLOOD UREA NITROGEN 14 MG/DL (7-18); BUN/CREATININE RATIO 13.1 (5.4-32.0); CALCIUM 8.4 MG/DL (8.5-10.1); CHLORIDE 107 MMOL/L (99-107); CREATININE 1.07 MG/DL (0.60-1.10); GLUCOSE 260 MG/DL (70-104); POTASSIUM 3.9 MMOL/L (3.5-5.1); SODIUM 144 MMOL/L (135-145); TOTAL CARBON DIOXIDE 22.4 MMOL/L (24-32); TOTAL PROTEIN 6.5 G/DL (6.4-8.2); eGFR 88 ML/MIN
[2020-11-23] MEDS ORDERED: LANTUS SQ (08:47)
[2020-11-23] MEDS: insulin Lispro (HumaLOG) vial - multi-dose SQ SCH (09:03)
[2020-11-23] MEDS: ticagrelor 90mg tablet PO SCH (09:05)
[2020-11-23] MEDS: losartan 50mg tablet PO SCH (09:06)
[2020-11-23] MEDS: levetiracetam 250mg tablet PO SCH (09:06)
[2020-11-23] MEDS: atenolol 50mg tablet PO SCH (09:06)
[2020-11-23] MEDS: docusate sod 100mg capsule PO SCH (09:07)
[2020-11-23 10:30] VITALS: BP 110/71
--- NOTE | 2020-11-23 11:50 | NUR ---
patient discharged home with family member on a private car. patient escorted off the unit accompanied by the administrative staff supervisor. pt was alert and oriented x 4 with vital signs. patients' PIV on right AC and right wrist discontinued with catheter tip intact . patient received discharged instruction verbally and written. patient mention to make his own appointment .
== END 2020-11-23 11:13 | disposition home or self-care (01) | DRG 420 ==
LOC: ER 03:18 → ED HOLD 08:14 → PCU 3S 17:30
PROVIDERS: ADMIT Internal Medicine; ATTEND Internal Medicine
DX: E11.10 Type 2 diabetes mellitus with ketoacidosis without coma (principal); N17.9 Acute kidney failure, unspecified; I50.9 Heart failure, unspecified; I11.0 Hypertensive heart disease with heart failure; E78.00 Pure hypercholesterolemia, unspecified; E86.0 Dehydration; F17.290 Nicotine dependence, other tobacco product, uncomplicated; M54.9 Dorsalgia, unspecified; R35.0 Frequency of micturition; I25.10 Atherosclerotic heart disease of native coronary artery without angina pectoris; I25.2 Old myocardial infarction; Z79.02 Long term (current) use of antithrombotics/antiplatelets; Z79.4 Long term (current) use of insulin; Z79.82 Long term (current) use of aspirin; Z79.84 Long term (current) use of oral hypoglycemic drugs; Z79.899 Other long term (current) drug therapy; Z83.3 Family history of diabetes mellitus; Z91.013 Allergy to seafood
CPT/HCPCS: 36415; 36600; 71045; 80048; 80053; 80320; 81001; 82803; 82948; 83036; 83605; 83690; 83735; 83880; 84100; 84145; 84484; 85018; 85025; 87081; 93005; 96361; 96374; 96375; 99285; G0378; J1815; J2405; J3480; J7030

== ENCOUNTER 2021-06-18 12:31 | Emergency (ER) | payer MEDICAID ==
[~2021-06-18] VITALS: Ht 193 cm; Wt 109.1 kg
[~2021-06-18 12:31] MED LIST changes: -ASPI-1071 PO; +ASPI-1397 PO; +ATOR-2 PO; -ATOR20TA66 PO; +BISO10TA16 PO; -KEP500T PO; +LEVE250T PO; +LOSA100T57 PO; -LOSA25TA41 PO; +METF-436 PO; -METF-950 PO; -METO-395 PO; -NICO-631 TD; +NICO-731 TOP; +SPIR25TA5 PO; -TICA90TA PO; +TICA90TA2 PO
[2021-06-18 13:29] LABS: BASOPHILS % (AUTO) 0.6 % (0-1); EOSINOPHILS # (AUTO) 0.1 X10'3 (0-0.9); EOSINOPHILS % (AUTO) 1.2 % (0-6); HEMATOCRIT 43.6 % (42.0-52.0); HEMOGLOBIN 14.3 g/dl (14.0-17.9); LYMPHOCYTES # (AUTO) 1.8 X10'3 (1.1-4.8); MEAN CORPUSCULAR HEMOGLOBIN 27.6 PG (27.0-31.0); MEAN CORPUSCULAR HGB CONC 32.7 g/dL (33.0-36.5); MEAN CORPUSCULAR VOLUME 84.5 FL (78-98); MEAN PLATELET VOLUME 8.3 FL (7.4-10.4); MONOCYTES # (AUTO) 0.6 X10'3 (0-0.9); MONOCYTES % (AUTO) 8.4 % (2-12); NEUTROPHILS # (AUTO) 4.5 X10'3 (1.8-7.7); NEUTROPHILS % (AUTO) 64.8 % (42-75); PLATELET COUNT 278 X10'3 (140-440); RED BLOOD COUNT 5.16 X10'6 (4.70-6.10); RED CELL DISTRIBUTION WIDTH 14.3 % (11.5-14.5)
[2021-06-18 13:57] LABS: ALANINE AMINOTRANSFERASE 39 U/L (12-78); ALBUMIN 3.5 G/DL (3.4-5.0); ALBUMIN/GLOBULIN RATIO 0.8 (1.1-1.5); ALKALINE PHOSPHATASE 96 IU/L (46-116); ANION GAP 6 (8-16); ASPARTATE AMINO TRANSFERASE 17 U/L (10-37); BILIRUBIN,TOTAL 0.9 MG/DL (0.1-1.0); BLOOD UREA NITROGEN 17 MG/DL (7-18); BUN/CREATININE RATIO 14.3 (5.4-32.0); CALCIUM 9.4 MG/DL (8.5-10.1); CHLORIDE 97 MMOL/L (99-107); CREATININE 1.19 MG/DL (0.60-1.10); SODIUM 132 MMOL/L (135-145); TOTAL CARBON DIOXIDE 28.8 MMOL/L (24-32); TOTAL PROTEIN 7.7 G/DL (6.4-8.2); eGFR 78 ML/MIN
[2021-06-18 14:10] LABS: GLUCOSE 482 MG/DL (70-104)
[2021-06-18] MEDS ORDERED: insulin regular, human 10 units/0.1 ml syringe SQ ONE ×2 (17:30→19:45)
[2021-06-18] MEDS ORDERED: normal saline 1000ML IV soln IVB ONE (17:30)
[2021-06-18] MEDS ORDERED: potassium Cl 20 mEq SR tablet PO ONE (19:45)
[2021-06-18 20:15] VITALS: BP 120/53
== END 2021-06-18 20:20 | disposition home or self-care (01) ==
LOC: ER 12:32
DX: R07.89 Other chest pain (principal); E87.6 Hypokalemia
CPT/HCPCS: 36415; 71045; 80053; 82948; 84484; 85025; 93005; 96372; 99285; J1815; J7030

== ENCOUNTER 2022-05-18 22:51 | Emergency (ER) | payer MEDICAID ==
[~2022-05-18] VITALS: Ht 193 cm; Wt 100.7 kg
[2022-05-18 23:33] LABS: BASOPHILS % (AUTO) 0.6 % (0-1); EOSINOPHILS # (AUTO) 0.1 X10'3 (0-0.9); EOSINOPHILS % (AUTO) 1.2 % (0-6); HEMATOCRIT 41.3 % (42.0-52.0); HEMOGLOBIN 13.7 g/dl (14.0-17.9); LYMPHOCYTES # (AUTO) 2.1 X10'3 (1.1-4.8); LYMPHOCYTES % (AUTO) 28.6 % (21-51); MEAN CORPUSCULAR HEMOGLOBIN 28.4 PG (27.0-31.0); MEAN CORPUSCULAR HGB CONC 33.1 g/dL (33.0-36.5); MONOCYTES # (AUTO) 0.8 X10'3 (0-0.9); NEUTROPHILS # (AUTO) 4.2 X10'3 (1.8-7.7); NEUTROPHILS % (AUTO) 58.6 % (42-75); PLATELET COUNT 228 X10'3 (140-440); RED BLOOD COUNT 4.81 X10'6 (4.70-6.10); RED CELL DISTRIBUTION WIDTH 13.6 % (11.5-14.5); WHITE BLOOD COUNT 7.2 X10'3 (4.5-11.0)
[2022-05-18 23:34] LABS: ALANINE AMINOTRANSFERASE 47 U/L (12-78); ALBUMIN 3.1 G/DL (3.4-5.0); ALBUMIN/GLOBULIN RATIO 0.8 (1.1-1.5); ALKALINE PHOSPHATASE 76 IU/L (46-116); ANION GAP 6 (8-16); ASPARTATE AMINO TRANSFERASE 35 U/L (10-37); BILIRUBIN,TOTAL 0.6 MG/DL (0.1-1.0); BLOOD UREA NITROGEN 23 MG/DL (7-18); BUN/CREATININE RATIO 17.4 (10.0-20.0); CALCIUM 8.8 MG/DL (8.5-10.1); CHLORIDE 98 MMOL/L (99-107); CREATININE 1.32 MG/DL (0.60-1.10); MAGNESIUM 1.9 MG/DL (1.5-2.4); POTASSIUM 4.1 MMOL/L (3.5-5.1); SODIUM 136 MMOL/L (135-145); TOTAL CARBON DIOXIDE 32.5 MMOL/L (24-32); TOTAL PROTEIN 6.8 G/DL (6.4-8.2); eGFR 69 ML/MIN
[2022-05-18 23:37] LABS: GLUCOSE 514 MG/DL (70-104)
[2022-05-19] MEDS ORDERED: insulin regular, human 10 units/0.1 ml syringe SQ ONE (02:55)
[2022-05-19 03:09] VITALS: BP 127/89
== END 2022-05-19 03:12 | disposition home or self-care (01) ==
LOC: ER 22:52
DX: R07.9 Chest pain, unspecified (principal); E11.65 Type 2 diabetes mellitus with hyperglycemia; E78.00 Pure hypercholesterolemia, unspecified; I11.9 Hypertensive heart disease without heart failure; Z91.013 Allergy to seafood; Z79.899 Other long term (current) drug therapy; Z79.1 Long term (current) use of non-steroidal anti-inflammatories (NSAID); Z79.2 Long term (current) use of antibiotics
CPT/HCPCS: 36415; 71045; 80053; 82948; 83735; 83880; 84484; 85025; 86592; 93005; 96372; 99285; J1815